=== PATIENT | female | born 1955 | race Caucasian/White ===

== ENCOUNTER → 2016-10-20 | Outpatient (CLI) | payer OTHER ==
[~2016-10-20] MED LIST: CALCIUM 600/VIT1 CAP PO; LUTEIN 15 MG-0.1 SGL PO; VITAMIN D 1001000 IU; ZYRTEC 10MG10 MG PO
== END ==
LOC: MC.RAD 08:40
DX: Z12.31 Encounter for screening mammogram for malignant neoplasm of breast (principal)

== ENCOUNTER → 2017-05-17 | Outpatient (CLI) | payer OTHER ==
[~2017-05-17] VITALS: Ht 156.2 cm; Wt 98.9 kg
[2017-05-17 09:17] VITALS: BP 152/100; PULSE 60
[2017-06-05 13:06] VITALS: BP 124/90; PULSE 84
== END ==
LOC: LIGHT 08:55
DX: E88.81 Metabolic syndrome and other insulin resistance (principal); N39.3 Stress incontinence (female) (male); I10 Essential (primary) hypertension; E66.01 Morbid (severe) obesity due to excess calories; Z68.41 Body mass index [BMI] 40.0-44.9, adult; Z71.3 Dietary counseling and surveillance

== ENCOUNTER → 2017-05-30 | Outpatient (CLI) | payer OTHER | LOC: LIGHT 12:34 | DX: Z01.89 Encounter for other specified special examinations (principal) ==

== ENCOUNTER → 2017-06-08 | Outpatient (CLI) | payer OTHER | LOC: LIGHT 10:03 | DX: Z01.818 Encounter for other preprocedural examination (principal) ==

== ENCOUNTER → 2017-06-15 | Outpatient (CLI) | payer OTHER ==
[~2017-06-15] VITALS: Ht 156.2 cm; Wt 98.0 kg
[2017-06-15 11:08] VITALS: BP 130/90; PULSE 68
[2017-07-03 09:18] VITALS: BP 130/90; PULSE 68
== END ==
LOC: LIGHT 11:05
DX: E88.81 Metabolic syndrome and other insulin resistance (principal); N39.3 Stress incontinence (female) (male); I10 Essential (primary) hypertension; E66.01 Morbid (severe) obesity due to excess calories; Z68.41 Body mass index [BMI] 40.0-44.9, adult; Z71.3 Dietary counseling and surveillance

== ENCOUNTER → 2017-07-20 | Outpatient (CLI) | payer OTHER ==
[~2017-07-20] VITALS: Ht 156.2 cm; Wt 97.7 kg
[2017-07-20 10:33] VITALS: BP 134/100; PULSE 60
== END ==
LOC: LIGHT 10:18
DX: E88.81 Metabolic syndrome and other insulin resistance (principal); N39.3 Stress incontinence (female) (male); I10 Essential (primary) hypertension; E66.01 Morbid (severe) obesity due to excess calories; Z68.41 Body mass index [BMI] 40.0-44.9, adult; Z71.3 Dietary counseling and surveillance

== ENCOUNTER → 2017-09-07 | Outpatient (CLI) | payer BC ==
[~2017-09-07] VITALS: Ht 156.2 cm; Wt 98.9 kg
[2017-09-07 08:43] VITALS: BP 126/80; PULSE 88
== END ==
LOC: LIGHT 08:38
DX: E88.81 Metabolic syndrome and other insulin resistance (principal); N39.3 Stress incontinence (female) (male); I10 Essential (primary) hypertension; E66.01 Morbid (severe) obesity due to excess calories; Z68.41 Body mass index [BMI] 40.0-44.9, adult; Z71.3 Dietary counseling and surveillance

== ENCOUNTER → 2017-10-26 | Outpatient (CLI) | payer BC ==
[~2017-10-26] VITALS: Ht 156.2 cm; Wt 97.3 kg
[2017-10-26 08:15] VITALS: BP 142/100; PULSE 80
== END ==
LOC: LIGHT 08:05
DX: E88.81 Metabolic syndrome and other insulin resistance (principal); N39.3 Stress incontinence (female) (male); I10 Essential (primary) hypertension; E66.01 Morbid (severe) obesity due to excess calories; Z68.39 Body mass index [BMI] 39.0-39.9, adult; Z71.3 Dietary counseling and surveillance
CPT/HCPCS: G0463

== ENCOUNTER → 2017-11-27 | Outpatient (CLI) | payer BC | LOC: MC.RAD 14:13 | DX: Z12.31 Encounter for screening mammogram for malignant neoplasm of breast (principal); Z98.890 Other specified postprocedural states ==

== ENCOUNTER → 2017-12-07 | Outpatient (CLI) | payer BC ==
[~2017-12-07] VITALS: Ht 156.2 cm; Wt 96.6 kg
[2017-12-07 09:26] VITALS: BP 140/100; PULSE 76
== END ==
LOC: LIGHT 09:11
DX: E88.81 Metabolic syndrome and other insulin resistance (principal); N39.3 Stress incontinence (female) (male); I10 Essential (primary) hypertension; E66.01 Morbid (severe) obesity due to excess calories; Z68.39 Body mass index [BMI] 39.0-39.9, adult; Z71.3 Dietary counseling and surveillance
CPT/HCPCS: G0463

== ENCOUNTER → 2018-02-22 | Outpatient (CLI) | payer BC ==
[~2018-02-22] VITALS: Ht 156.2 cm; Wt 95.5 kg
[2018-02-22 10:36] VITALS: BP 120/90; PULSE 72
== END ==
LOC: LIGHT 10:04
DX: E88.81 Metabolic syndrome and other insulin resistance (principal); N39.3 Stress incontinence (female) (male); I10 Essential (primary) hypertension; E66.01 Morbid (severe) obesity due to excess calories; Z68.39 Body mass index [BMI] 39.0-39.9, adult; Z71.3 Dietary counseling and surveillance
CPT/HCPCS: G0463

== ENCOUNTER → 2018-04-05 | Outpatient (CLI) | payer BC ==
[~2018-04-05] VITALS: Ht 156.2 cm; Wt 95.9 kg
[2018-04-05 10:00] VITALS: BP 140/100; PULSE 60
== END ==
LOC: LIGHT 09:30
DX: E88.81 Metabolic syndrome and other insulin resistance (principal); N39.3 Stress incontinence (female) (male); I10 Essential (primary) hypertension; E66.01 Morbid (severe) obesity due to excess calories; Z68.39 Body mass index [BMI] 39.0-39.9, adult; Z71.3 Dietary counseling and surveillance
CPT/HCPCS: G0463

== ENCOUNTER → 2018-06-21 | Outpatient (CLI) | payer BC ==
[~2018-06-21] VITALS: Ht 156.2 cm; Wt 95.3 kg
[2018-06-21 11:16] VITALS: BP 130/100; PULSE 80
== END ==
LOC: LIGHT 05-17 11:47
DX: E88.81 Metabolic syndrome and other insulin resistance (principal); I10 Essential (primary) hypertension; N39.3 Stress incontinence (female) (male); E66.01 Morbid (severe) obesity due to excess calories; Z68.39 Body mass index [BMI] 39.0-39.9, adult; Z71.3 Dietary counseling and surveillance
CPT/HCPCS: G0463

== ENCOUNTER → 2018-08-02 | Outpatient (CLI) | payer BC ==
[~2018-08-02] VITALS: Ht 156.2 cm; Wt 95.5 kg
[2018-08-02 10:17] VITALS: BP 130/90; PULSE 80
== END ==
LOC: LIGHT 09:56
DX: E88.81 Metabolic syndrome and other insulin resistance (principal); N39.3 Stress incontinence (female) (male); I10 Essential (primary) hypertension; E66.01 Morbid (severe) obesity due to excess calories; Z68.39 Body mass index [BMI] 39.0-39.9, adult; Z71.3 Dietary counseling and surveillance
CPT/HCPCS: G0463

== ENCOUNTER → 2018-09-13 | Outpatient (CLI) | payer BC ==
[~2018-09-13] VITALS: Ht 156.2 cm; Wt 95.3 kg
[2018-09-13 10:22] VITALS: BP 130/100; PULSE 64
== END ==
LOC: LIGHT 10:07
DX: E88.81 Metabolic syndrome and other insulin resistance (principal); I10 Essential (primary) hypertension; E66.01 Morbid (severe) obesity due to excess calories; Z68.39 Body mass index [BMI] 39.0-39.9, adult; Z71.3 Dietary counseling and surveillance
CPT/HCPCS: G0463

== ENCOUNTER → 2018-10-11 | Outpatient (CLI) | payer BC ==
[~2018-10-11] VITALS: Ht 156.2 cm; Wt 95.7 kg
[2018-10-11 11:09] VITALS: BP 146/106; PULSE 72
== END ==
LOC: LIGHT 10:49
DX: E88.81 Metabolic syndrome and other insulin resistance (principal); I10 Essential (primary) hypertension; E66.01 Morbid (severe) obesity due to excess calories; Z68.39 Body mass index [BMI] 39.0-39.9, adult; Z71.3 Dietary counseling and surveillance
CPT/HCPCS: G0463

== ENCOUNTER → 2018-11-22 | Outpatient (CLI) | payer BC ==
[~2018-11-22] VITALS: Ht 156.2 cm; Wt 96.4 kg
[~2018-11-22] MED LIST changes: +PHENTERMINE15 MG PO
[2018-11-22 10:45] VITALS: BP 142/94; PULSE 72
== END ==
LOC: LIGHT 10:35
DX: E88.81 Metabolic syndrome and other insulin resistance (principal); I10 Essential (primary) hypertension; E66.01 Morbid (severe) obesity due to excess calories; Z68.39 Body mass index [BMI] 39.0-39.9, adult; Z71.3 Dietary counseling and surveillance
CPT/HCPCS: G0463

== ENCOUNTER → 2018-12-27 | Outpatient (CLI) | payer BC ==
[~2018-12-27] VITALS: Ht 156.2 cm; Wt 93.2 kg
[2018-12-27 09:21] VITALS: BP 136/70; PULSE 72
== END ==
LOC: LIGHT 12-20 15:16
DX: E88.81 Metabolic syndrome and other insulin resistance (principal); I10 Essential (primary) hypertension; E66.01 Morbid (severe) obesity due to excess calories; Z68.38 Body mass index [BMI] 38.0-38.9, adult; Z71.3 Dietary counseling and surveillance
CPT/HCPCS: G0463

== ENCOUNTER → 2019-01-01 | Outpatient (CLI) | payer BC | LOC: MC.RAD 07:52 | DX: Z12.31 Encounter for screening mammogram for malignant neoplasm of breast (principal) ==

== ENCOUNTER → 2019-01-31 | Outpatient (CLI) | payer BC ==
[~2019-01-31] VITALS: Ht 156.2 cm; Wt 91.2 kg
[2019-01-31 09:24] VITALS: BP 142/96; PULSE 68
== END ==
LOC: LIGHT 09:19
DX: E88.81 Metabolic syndrome and other insulin resistance (principal); I10 Essential (primary) hypertension; E66.01 Morbid (severe) obesity due to excess calories; Z68.37 Body mass index [BMI] 37.0-37.9, adult; Z71.3 Dietary counseling and surveillance
CPT/HCPCS: G0463

== ENCOUNTER → 2019-03-07 | Outpatient (CLI) | payer BC ==
[~2019-03-07] VITALS: Ht 156.2 cm; Wt 90.3 kg
[2019-03-07 10:28] VITALS: BP 136/86; PULSE 72
== END ==
LOC: LIGHT 09:57
DX: E88.81 Metabolic syndrome and other insulin resistance (principal); I10 Essential (primary) hypertension; E66.01 Morbid (severe) obesity due to excess calories; Z68.37 Body mass index [BMI] 37.0-37.9, adult; Z71.3 Dietary counseling and surveillance
CPT/HCPCS: G0463

== ENCOUNTER → 2019-04-18 | Outpatient (CLI) | payer BC ==
[~2019-04-18] VITALS: Ht 156.2 cm; Wt 91.2 kg
[2019-04-18 10:48] VITALS: BP 138/84; PULSE 72
== END ==
LOC: LIGHT 10:27
DX: E88.81 Metabolic syndrome and other insulin resistance (principal); I10 Essential (primary) hypertension; E66.01 Morbid (severe) obesity due to excess calories; Z68.37 Body mass index [BMI] 37.0-37.9, adult; Z71.3 Dietary counseling and surveillance
CPT/HCPCS: G0463

== ENCOUNTER → 2019-07-04 | Outpatient (CLI) | payer BC ==
[~2019-07-04] VITALS: Ht 156.2 cm; Wt 89.6 kg
[2019-07-04 09:44] VITALS: BP 136/92; PULSE 78
== END ==
LOC: LIGHT 09:34
DX: E88.81 Metabolic syndrome and other insulin resistance (principal); I10 Essential (primary) hypertension; E66.01 Morbid (severe) obesity due to excess calories; Z68.39 Body mass index [BMI] 39.0-39.9, adult; Z71.3 Dietary counseling and surveillance
CPT/HCPCS: G0463

== ENCOUNTER → 2019-08-15 | Outpatient (CLI) | payer BC ==
[~2019-08-15] VITALS: Ht 156.2 cm; Wt 89.4 kg
[2019-08-15 09:47] VITALS: BP 126/82; PULSE 72
== END ==
LOC: LIGHT 09:25
DX: E88.81 Metabolic syndrome and other insulin resistance (principal); I10 Essential (primary) hypertension; E66.01 Morbid (severe) obesity due to excess calories; Z68.36 Body mass index [BMI] 36.0-36.9, adult; Z71.3 Dietary counseling and surveillance
CPT/HCPCS: G0463

== ENCOUNTER → 2020-04-15 | Outpatient (CLI) | payer MEDICARE, OTHER | LOC: MC.RAD 11:35 | DX: Z12.31 Encounter for screening mammogram for malignant neoplasm of breast (principal); Z98.82 Breast implant status ==

== ENCOUNTER → 2020-04-16 | Outpatient (CLI) | payer MEDICARE, OTHER ==
[~2020-04-16] VITALS: Ht 156.2 cm; Wt 95.5 kg
[2020-04-16 09:09] VITALS: BP 140/90; PULSE 84
== END ==
LOC: LIGHT 01-02 11:40
DX: E66.01 Morbid (severe) obesity due to excess calories (principal); Z68.39 Body mass index [BMI] 39.0-39.9, adult; E88.81 Metabolic syndrome and other insulin resistance; I10 Essential (primary) hypertension
CPT/HCPCS: G0463

== ENCOUNTER → 2021-05-20 | Outpatient (CLI) | payer MEDICARE, OTHER | LOC: MC.RAD 07:24 | DX: Z12.31 Encounter for screening mammogram for malignant neoplasm of breast (principal) ==

== ENCOUNTER → 2021-06-18 | Outpatient (CLI) | payer MEDICARE, OTHER | LOC: COL.RAD 13:49 | DX: N20.0 Calculus of kidney (principal) ==

== ENCOUNTER → 2022-05-23 | Outpatient (CLI) | payer MEDICARE, OTHER | LOC: MC.RAD 07:27 | DX: Z12.31 Encounter for screening mammogram for malignant neoplasm of breast (principal); N64.89 Other specified disorders of breast ==

== ENCOUNTER → 2022-05-27 | Outpatient (CLI) | payer MEDICARE, OTHER | LOC: MC.RAD 06:52 | DX: N63.10 Unspecified lump in the right breast, unspecified quadrant (principal); N63.20 Unspecified lump in the left breast, unspecified quadrant ==

== ENCOUNTER 2022-06-15 14:04 | Emergency (ER) | payer MEDICARE, OTHER ==
[~2022-06-15] VITALS: Ht 157.5 cm; Wt 93.2 kg
[2022-06-15 14:17] VITALS: TEMP 98
[2022-06-15] MEDS ORDERED: CRUTCHES MC (15:22)
[2022-06-15 15:40] VITALS: BP 117/93; PULSE 78
== END 2022-06-15 15:43 | disposition home or self-care (01) ==
LOC: COL.ER 14:04
DX: S89.91XA Unspecified injury of right lower leg, initial encounter (principal); X50.1XXA Overexertion from prolonged static or awkward postures, initial encounter
CPT/HCPCS: L1830; L1846

== ENCOUNTER → 2023-07-10 | Outpatient (CLI) | payer MEDICARE, OTHER ==
[~2023-07-10] MED LIST changes: +CRUTCHES MC
== END ==
LOC: CANSCHCLI → MC.RAD 08:00
DX: Z12.31 Encounter for screening mammogram for malignant neoplasm of breast (principal)

== ENCOUNTER → 2023-07-20 | Outpatient (CLI) | payer MEDICARE | LOC: MC.RAD 13:46 | DX: N60.02 Solitary cyst of left breast (principal) ==

== ENCOUNTER → 2024-07-23 | Outpatient (CLI) | payer MEDICARE | LOC: MC.RAD 09:15 | DX: Z12.31 Encounter for screening mammogram for malignant neoplasm of breast (principal) ==